=== PATIENT | female | born 1980 | race Caucasian/White ===

== ENCOUNTER → 2019-04-22 | Outpatient (CLI) | payer OTHER ==
--- NOTE | 2019-04-26 10:26 | MAM ---
EXAM DESCRIPTION: 3D Screening BILATERAL : Digital Mammography. CLINICAL HISTORY: 38 years Female SCREENING . No complaints. No personal history of breast cancer. Remote family history of breast or ovarian cancer. Menarche age 11. Childbirth. Premenopausal. No HRT. Lifetime risk of developing breast cancer (Tyrer-Cuzick model)(%): 9.1. COMPARISON: Baseline study at this facility.. No prior reports available. TECHNIQUE: Bilateral CC and MLO projection full-field images, digital tomosynthesis mammographic technique. Bilateral digital 2-D full-field MLO images. CAD not available for tomosynthesis or 2-D images. FINDINGS: The breast parenchymal density pattern is: Heterogeneously dense breast tissue, which may obscure small masses. No skin thickening or nipple retraction. . Bilateral axillary lymph nodes. Focal asymmetry upper outer quadrant middle third of left breast approximately 7 cm from the nipple at the 2:00 position. Focal asymmetry posterior third of the right breast approximately 8 cm from the nipple 11:00 to 12:00. Diffuse microcalcifications. IMPRESSION: BI-RADS CATEGORY: 0 - INCOMPLETE- Need additional imaging evaluation. FOLLOW-UP: Recall for additional imaging: Bilateral LM full-field 2-D and tomosynthesis images. Bilateral directed ultrasound to follow.. Written communication concerning the IMPRESSION and Follow-up, will be mailed to the patient and referring health care provider. Electronically signed by: John Mi MD 04/26/2019 10:24 AM CDT
== END ==
LOC: MERGE 11:48 → MAMMO 11:48
PROVIDERS: ATTEND Family Medicine
DX: Z12.31 Encounter for screening mammogram for malignant neoplasm of breast (principal)

== ENCOUNTER 2019-07-28 10:59 | Emergency (ER) | payer OTHER ==
[2019-07-28] MEDS ORDERED: predniSONE 20 MG TAB PO ONE (11:30)
[2019-07-28] MEDS ORDERED: KETOROLAC TROMETHAMINE INJ 30 MG/ML VIAL IM ONE (11:30)
[2019-07-28] MEDS ORDERED: CYCLOBENZAPRINE HCL 10 MG TAB PO ONE (11:30)
--- NOTE | 2019-07-28 11:32 | ED.PDOC ---
History of Present Illness - General Time Seen by Provider: 07/28/19 11:06 Source: patient Exam Limitations: no limitations - History of Present Illness Initial Comments: The patient's 38-year-old female presenting to emergency room secondary to chronic right low back pain with associated sciatica. The patient has had a flare over the last month and has been unable to sleep for the last few nights. She does already take several medications to target the pain. She already sees a pain specialist and has been receiving injections in the low back. She is scheduled for more in the near future. no new symptoms, just worsening of symptoms. No weakness or incontinence. Timing/Duration: other - one month Severity: severe Improving Factors: nothing Worsening Factors: movement Associated Symptoms: denies symptoms Home Medications: Ambulatory Orders Celecoxib 200 mg PO BID 07/28/19 Cyclobenzaprine HCl [Flexeril] 10 mg PO TID PRN #20 tab 07/28/19 Omeprazole 40 mg PO DAILY 07/28/19 Topiramate 300 mg PO BEDTIME 07/28/19 Venlafaxine HCl [Venlafaxine HCl ER] 150 mg PO DAILY 07/28/19 predniSONE [Prednisone] 40 mg PO DAILY #10 tab 07/28/19 Review of Systems - Review of Systems Constitutional: States: no symptoms reported EENTM: States: no symptoms reported Respiratory: States: no symptoms reported Cardiology: States: no symptoms reported Gastrointestinal/Abdominal: States: no symptoms reported Genitourinary: States: no symptoms reported Musculoskeletal: States: see HPI Skin: States: no symptoms reported Neurological: States: no symptoms reported Endocrine: States: no symptoms reported Hematologic/Lymphatic: States: no symptoms reported All other Systems: No Change from Baseline Physical Exam - Physical Exam General Appearance: Alert, Other - obviously uncomfortable Eye Exam: bilateral normal Ears, Nose, Throat: hearing grossly normal, normal ENT inspection Neck: full range of motion, supple Respiratory: lungs clear, normal breath sounds, no respiratory distress, no accessory muscle use Cardiovascular/Chest: normal peripheral pulses, regular rate, rhythm, no edema Peripheral Pulses: radial,right: 2+, radial,left: 2+, dorsalis pedis,right: 2+, dorsalis pedis,left: 2+ Gastrointestinal/Abdominal: non tender, soft Rectal Exam: deferred Back Exam: normal inspection, CVA tenderness (R) - lower back Extremity: normal range of motion, non-tender, no pedal edema 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 The patient will be placed on 40 mg of prednisone for the next 5 days. She'll also be written for F lexeril for as needed use. She is to continue her routine medications for her back otherwise. She is to keep follow-up with her pain management doctor. Stretching may prove beneficial as well as topical heat. ER warnings were given for any acute worsening. paxton dan [id number] Departure - Departure Clinical Impression: Sciatica Qualifiers: Laterality: right Qualified Code(s): M54.31 - Sciatica, right side Disposition: Discharge to Home or Self Care Condition: Fair Instructions: DI for Back Pain With Sciatica Diet: regular diet Activity: increase activity as tolerated Referrals: Db Dan MD [Primary Care Provider] - 1-2 Weeks Prescriptions: Cyclobenzaprine HCl [Flexeril] 10 mg PO TID PRN #20 tab PRN Reason: Muscle Spasms predniSONE [Prednisone] 40 mg PO DAILY #10 tab Home Medications: Ambulatory Orders Celecoxib 200 mg PO BID 07/28/19 Cyclobenzaprine HCl [Flexeril] 10 mg PO TID PRN #20 tab 07/28/19 Omeprazole 40 mg PO DAILY 07/28/19 Topiramate 300 mg PO BEDTIME 07/28/19 Venlafaxine HCl [Venlafaxine HCl ER] 150 mg PO DAILY 07/28/19 predniSONE [Prednisone] 40 mg PO DAILY #10 tab 07/28/19 Additional Instructions: the patient is a 38-year-old female with long-standing lower back pain and right-sided sciatica presenting secondary to a flare. The patient will be placed on 40 mg of prednisone for the next 5 days. She'll also be written for Flexeril for as needed use. She is to continue her routine medications for her back otherwise. She is to keep follow-up with her pain management doctor. Stretching may prove beneficial as well as topical heat. ER warnings were given for any acute worsening.
[2019-07-28 11:42] VITALS: TEMP 98.6
[2019-07-28 12:36] VITALS: BP 107/71; O2SAT 97
== END 2019-07-28 12:10 | disposition home or self-care (01) ==
LOC: ER 10:59
DX: M54.41 Lumbago with sciatica, right side (principal); G89.29 Other chronic pain

== ENCOUNTER → 2019-08-16 | Outpatient (CLI) | payer OTHER ==
--- NOTE | 2019-08-16 08:37 | MRI ---
EXAM DESCRIPTION: Lumbar Spine w/o Contrast CLINICAL HISTORY: LOW BACK PAIN COMPARISON: December 21, 2015 TECHNIQUE: Multiplanar, multisequence MRI of the lumbar spine was performed without contrast. FINDINGS: Lumbar vertebral body heights are maintained. Mild straightening of the normal lumbar lordosis. No spondylolysis or spondylolisthesis. No marrow replacing process. Conus medullaris terminates at T12-L1 and is unremarkable. Visualized intra-abdominal and retroperitoneal structures show no acute findings. L1-2 No significant findings. L2-3 No significant findings. L3-4 No significant findings. L4-5 Desiccation of the disc space without disc space narrowing. Less than 2 mm broad-based annular disc bulge stable from previous mildly indenting the ventral aspect of the thecal sac. Central linear increased T2 signal annular tear is unchanged. No foraminal encroachment or nerve root impingement. L5-S1 Disc desiccation and mild loss of disc space height. Right lateral recess focal disc protrusion is increased from previous now measuring 7 to 8 mm AP by 11 mm transverse by 9 mm craniocaudal contacting and posteriorly displacing the descending right S1 nerve root and lateral recess. Mild flattening of the ventral surface of the thecal sac is seen with mild spinal canal stenosis. At least mild left lateral recess encroachment on the descending S1 nerve root is also seen. Mild bilateral foraminal encroachment. Mild Modic type I endplate signal changes are now seen. IMPRESSION: Interval worsening of right paracentral to lateral recess focal disc protrusion at L5-S1 resulting in moderate to severe right and mild left lateral recess encroachment on the descending S1 nerve roots. Stable mild disc disease and central annular tear seen at L4-5. Electronically signed by: Harvey Dsouza MD 08/16/2019 8:35 AM [employer]
== END ==
LOC: MRI 07:39
PROVIDERS: ATTEND General Practice
DX: M51.27 Other intervertebral disc displacement, lumbosacral region (principal); M51.36 Other intervertebral disc degeneration, lumbar region